=== PATIENT | male | born 1980 | race Caucasian/White ===

== ENCOUNTER 2021-03-13 09:52 | Outpatient (CLI) | payer BC, SELFPAY ==
[2021-03-13 10:35] VITALS: BP 144/110; PULSE 93; RESP 16; TEMP 37.3; O2SAT 98; BMI 27.0
[2021-03-13 11:18] VITALS: BP 133/93; PULSE 83; RESP 17; O2SAT 98
[2021-03-13 12:20] VITALS: BP 140/93; PULSE 78; RESP 18; TEMP 37.3; O2SAT 99
--- NOTE | 2021-03-20 18:42 | PC.SOCIAL ---
10-1, 0675 antibody infusion follow up call, unable to reach patient, unable to leave message.
== END 2021-03-13 09:53 | disposition home or self-care (01) ==
LOC: OPS 09:56
PROVIDERS: PCP Nurse Practitioner; Visit Provider Nurse Practitioner
DX: U07.1 COVID-19 (principal)
CPT/HCPCS: 96365